=== PATIENT | female | born 1960 | race Caucasian/White ===

== ENCOUNTER 2021-07-02 15:23 | Emergency (ER) | payer OTHER ==
[~2021-07-02] VITALS: Ht 162.6 cm; Wt 71.2 kg
--- NOTE | 2021-07-02 15:29 | NUR ---
Received pt 61 yrs female came by bryan c/o numbness in both arm and FACE AND head since 1400 pm 07/02/21 pt fully awake and alert fallow commond no weekness code lee meredith see code stroke log
--- NOTE | 2021-07-02 15:33 | NUR ---
TO CT SCAN via [facility]
[2021-07-02] MEDS ORDERED: IOHEXOL-350 100 ML VIAL IV ONE (15:38)
[2021-07-02 15:43] LABS: BASOPHILS % (AUTO) 0.5 % (0.0-2.0); EOSINOPHILS % (AUTO) 1.2 % (0.0-6.0); HEMATOCRIT 39 % (33-45); MEAN CORPUSCULAR HGB CONC 34 g/dl (31.0-36.0); MEAN CORPUSCULAR VOLUME 90 fL (82-100); MONOCYTES # (AUTO) 0.7 K/uL (0.1-1.30); MONOCYTES % (AUTO) 11.9 % (2.0-12.0); NEUTROPHILS # (AUTO) 2.8 K/uL (1.8-8.9); NEUTROPHILS % (AUTO) 50.4 % (43.0-81.0); PLATELET COUNT (AUTO) 213 K/uL (150-450); RED BLOOD CELL COUNT(AUTO) 4.31 MIL/uL (4.0-5.2); WHITE BLOOD COUNT (AUTO) 5.5 K/uL (4.3-11.0)
--- NOTE | 2021-07-02 15:47 | NUR ---
1545 cxray done [address] can and cta done
--- NOTE | 2021-07-02 15:50 | NUR ---
[facility] DONE # 1 NO WEEKNESS
[2021-07-02 15:54] LABS: CARBON DIOXIDE 27 mmol/L (21-32); CHLORIDE 105 mmol/L (98-107); CREATININE 0.8 mg/dL (0.6-1.3); GLUCOSE 112 mg/dL (74-106); POTASSIUM 3.7 mmol/L (3.5-5.1); SODIUM SERUM 140 mmol/L (136-145); UREA NITROGEN, BLOOD 13 mg/dL (7-18)
[2021-07-02] MEDS ORDERED: ONDANSETRON HCL/PF 4 MG/2 ML VIAL ONE (16:00)
--- NOTE | 2021-07-02 16:00 | NUR ---
c/o nusea and vomiting water clear color zofran 4mg ivp given
--- NOTE | 2021-07-02 16:05 | NUR ---
NUROLOGE IN [place] AT BED SIDE SPOOK WITH PT NO WWEKESS NO DIFFESETY
[2021-07-02] MEDS ORDERED: ONDANSETRON HCL/PF - ER 4 MG/2 ML VIAL IV ONE (16:30)
--- NOTE | 2021-07-02 17:00 | NUR ---
NO CHANGE IN PT CONDITION OF NIH STABLE
--- NOTE | 2021-07-02 18:33 | NUR ---
CALLED NURSING SUP REGARDING PT BED
--- NOTE | 2021-07-02 18:47 | NUR ---
covid swab done and sent to lab
--- NOTE | 2021-07-02 19:44 | NUR ---
HAND OFF TO AUGUST RN
--- NOTE | 2021-07-02 19:51 | NUR ---
RECEIVED REPORT FROM [facility] [facility]
--- NOTE | 2021-07-02 19:52 | NUR ---
PT RESTING COMFORTABLY IN BED, STATES SHE HAS A HEADACHE 1/10 ON P/S BUT DOES NOT WANT ANY PAIN MEDS AT THIS TIME. CONNECTED TO MONITOR. WILL CONTINUE TO MONITOR.
--- NOTE | 2021-07-02 20:02 | NUR ---
S/W JESUS FROM [facility] [phone] PT WILL BE TX TO [facility]
--- NOTE | 2021-07-02 20:17 | NUR ---
DR FRENCH SPOKE W/ DR DE LA CRUZ FOR PEER TO PEER, PT ACCEPTED
--- NOTE | 2021-07-02 21:03 | NUR ---
BEDSIDE COMMODE PROVIDED TO PT, STEADY GAIT NOTED
--- NOTE | 2021-07-02 22:04 | NUR ---
PT RESTING COMFORTABLY IN BED, DAUGHTER AT BEDSIDE. PT STATES SHE HAS HEADACHE 4/10 ON P/S. MD MADE AWARE.
[2021-07-02] MEDS ORDERED: ACETAMINOPHEN ES 500 MG TABLET ONE (22:18)
[2021-07-02] MEDS ORDERED: ACETAMINOPHEN ES 500 MG TABLET PO ONE (22:30)
--- NOTE | 2021-07-03 | NUR ---
PT GOING TO [facility] UNDER THE CARE OF DR. KWONG. PT IS GOING TO BED 215-A. CALL [phone] FOR NURSE TO NURSE REPORT.
--- NOTE | 2021-07-03 00:02 | NUR ---
MANAGER TRANSPORTATION PLANNING DANIEL WILL CALLING BACK FOR THE TRANSPORT ETA
--- NOTE | 2021-07-03 01:32 | NUR ---
PT IS ASLEEP, BUT EASILY AROUSABLE. WILL CONTINUE TO MONITOR
--- NOTE | 2021-07-03 02:14 | NUR ---
ET for transport to [facility] 0600 by by [facility]
--- NOTE | 2021-07-03 05:03 | NUR ---
PROVIDED PT WITH WARM BLANKETS , WILL CONTINUE TO MONITOR.
--- NOTE | 2021-07-03 06:43 | NUR ---
AMBULANCE ETA 30-45 MINS.
--- NOTE | 2021-07-03 07:22 | NUR ---
Shahida gross in [place] - 07/03/21 at 0732 by MEHDI PT WILL BE GOING TO 523
--- NOTE | 2021-07-03 07:36 | NUR ---
ATTEMPTED TO GIVE REPORT , SPOKE WITH ERIC.
--- NOTE | 2021-07-03 07:46 | NUR ---
REPORT GIVEN TO DONAL FROM [facility]
[2021-07-03 07:48] VITALS: BP 109/73
--- NOTE | 2021-07-03 07:48 | NUR ---
REPORT GIVEN TO EMS FOR PT TRANSFER TO [facility].
== END 2021-07-03 07:55 | disposition short-term general hospital (02) ==
LOC: ER 15:25
DX: G45.9 Transient cerebral ischemic attack, unspecified (principal); R42 Dizziness and giddiness; M06.9 Rheumatoid arthritis, unspecified; Z20.822 Contact with and (suspected) exposure to COVID-19; R11.0 Nausea; E03.9 Hypothyroidism, unspecified
CPT/HCPCS: 36415; 70450; 70496; 70498; 71045; 80048; 82962 ×2; 84484; 85025; 85730; 87081; 87426; 93005; 96374; 99291; C9803; J2405; Q9967